=== PATIENT | female | born 1930 | race Caucasian/White ===

== ENCOUNTER 2018-12-29 20:40 | Outpatient (CLI) | payer OTHER | END 2018-12-29 22:20 | disposition home or self-care (01) | LOC: MCT 20:40 | DX: K80.80 Other cholelithiasis without obstruction (principal); N13.30 Unspecified hydronephrosis; K57.90 Diverticulosis of intestine, part unspecified, without perforation or abscess without bleeding; D73.4 Cyst of spleen | CPT/HCPCS: 74177; Q9967 ==